=== PATIENT | female | born 1985 | race Hispanic/Latino ===

== ENCOUNTER 2018-03-21 01:38 | Emergency (ER) | payer OTHER, SELFPAY ==
[2018-03-21] MEDS ORDERED: ACETAMINOPHEN 500 MG TAB ONE (02:06)
[2018-03-21] MEDS ORDERED: ONDANSETRON 4 MG (ODT) TAB ONE (02:06)
--- NOTE | 2018-03-21 02:31 | EDPHYS ---
Physician Documentation [facility] Name: Saima Rodriguez Age: 32 yrs Sex: Female : 1985 Arrival Date: 03/21/2018 Time: 01:42 Bed 14 Private MD: ED Physician Neftali Crocker HPI: 03/21 01:50 This 32 yrs old Female presents to ER via Ambulatory with complaints of Sore cp Throat, Fever. 01:50 The patient presents with sore throat, dysphagia, of both solids and liquids. cp 01:50 The patient describes throat pain as constant. cp 01:50 Severity of symptoms: in the emergency department the symptoms are unchanged, despite cp home interventions. Associated signs and symptoms: Pertinent negatives fever, flu-like symptoms. 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 - Social history:: Smoking status: Patient/guardian denies using tobacco, Patient uses alcohol, occasionally. Patient/guardian denies using street drugs, IV drugs. - Ebola Screening: : Patient negative for fever greater than or equal to 101.5 degrees Fahrenheit, and additional compatible Ebola Virus Disease symptoms Patient denies exposure to infectious person Patient denies travel to an Ebola-affected area in the 21 days before illness onset. ROS: 01:55 Constitutional: Positive for chills, Negative for body aches, fever, poor PO intake. cp 01:55 Eyes: Negative for injury, pain, redness, and discharge. cp 01:55 ENT: Positive for difficulty swallowing, ear pain, hoarseness, sore throat, Negative for drainage from ear(s), difficulty handling secretions. 01:55 Respiratory: Negative for cough, shortness of breath, wheezing. 01:55 Abdomen/GI: Positive for nausea, Negative for diarrhea, constipation. 01:55 Skin: Negative for cellulitis, rash. 01:55 Neuro: Negative for altered mental status, headache, weakness. 01:55 All other systems are negative. Exam: 02:00 Constitutional: The patient appears in no acute distress, alert, awake, non-toxic, well cp developed, well nourished. 02:00 Head/Face: Normocephalic, atraumatic. cp 02:00 Eyes: Periorbital structures: appear normal, Conjunctiva: normal, no exudate, no injection, Lids and lashes: appear normal, bilaterally. 02:00 ENT: External ear(s): are unremarkable, Ear canal(s): are normal, clear, TM's: bulging, is not appreciated, bilaterally, dullness, bilaterally, erythema, is not appreciated, bilaterally, Nose: is normal, Mouth: Lips: moist, Oral mucosa: moist, Posterior pharynx: Airway: no evidence of obstruction, patent, Tonsils: bilaterally enlarged, with erythema, no exudate, Uvula: midline, swelling, is not appreciated, erythema, that is moderate, exudate, is not appreciated, Voice: is hoarse. 02:00 Neck: ROM/movement: is normal, is supple, no range of motions limitations, no meningismus, no nuchal rigidity. 02:00 Chest/axilla: Inspection: normal, Palpation: is normal, no crepitus, no tenderness. 02:00 Cardiovascular: Rate: normal, Rhythm: regular. 02:00 Respiratory: the patient does not display signs of respiratory distress, Respirations: normal, no use of accessory muscles, no retractions, no splinting, no tachypnea, labored breathing, is not present, Breath sounds: are clear throughout, no decreased breath sounds, no stridor, no wheezing. 02:00 Abdomen/GI: Exam negative for discomfort, distension, guarding, Inspection: abdomen appears normal. 02:00 Skin: cellulitis, is not appreciated, no rash present. Vital Signs: 01:52 BP 132 / 93; Pulse 90; Resp 16; Temp 98.6(O); Pulse Ox 100% on R/A; Weight 62.6 kg; ao Height 4 ft. 1 in. (124.46 cm); Pain 4/10; 02:43 BP 120 / 80; Pulse 88; Resp 18; Pulse Ox 99% on R/A; jb4 01:52 Body Mass Index 40.41 (62.60 kg, 124.46 cm) ao MDM: 01:44 Patient medically screened. cp 02:30 Data reviewed: vital signs, nurses notes, lab test result(s), and as a result, I will cp discharge patient. 02:30 Counseling: I had a detailed discussion with the patient and/or guardian regarding: the cp historical points, exam findings, and any diagnostic results supporting the discharge/admit diagnosis, lab results, to return to the emergency department if symptoms worsen or persist or if there are any questions or concerns that arise at home. Response to treatment: the patient's symptoms have mildly improved after treatment, and as a result, I will discharge patient. 03/21 01:44 Order name: Flu; Complete Time: 02:30 ak1 03/21 01:44 Order name: Strep; Complete Time: 02:30 ak1 03/21 02:47 Order name: Throat Culture EDME Administered Medications: 02:03 Drug: Zofran 4 mg Route: PO; jb4 02:39 Follow up: Response: No adverse reaction; Nausea is decreased jb4 02:03 Drug: Tylenol 1000 mg Route: PO; jb4 02:39 Follow up: Response: No adverse reaction; Pain is decreased jb4 02:38 Drug: Augmentin Chewable Tablet 800 mg Route: PO; jb4 02:39 Follow up: Response: No adverse reaction jb4 Disposition: 03/21/18 02:31 Discharged to Home. Impression: Acute tonsillitis. - Condition is Stable. - Discharge Instructions: Tonsillitis. - Prescriptions for Ibuprofen 800 mg Oral Tablet - take 1 tablet by ORAL route every 8 hours As needed take with food; 30 tablet. Zofran 4 mg Oral Tablet - take 1 tablet by ORAL route every 12 hours As needed; 20 tablet. Augmentin 875- 125 mg Oral Tablet - take 1 tablet by ORAL route every 12 hours for 10 days; 20 tablet. - Medication Reconciliation Form, Thank You Letter, Antibiotic Education, Prescription Opioid Use form. - Follow up: Private Physician; When: 2 - 3 days; Reason: if symptoms continue. - Problem is new. - Symptoms have improved. Addendum: 03/23/2018 06:59 Co-signature as Attending Physician, Neftali Crocker MD I agree with the assessment and c tristan plan of care. Signatures: Dispatcher [employer] EDME Neftali Crocker MD MD cha Page, Corey, PA PA cp Ortiz, Alex, RN RN ao Bryson, James, RN RN jb4 Corrections: (The following items were deleted from the chart) 03/21 02:50 02:31 03/21/2018 02:31 Discharged to Home. Impression: Acute tonsillitis. Condition is jb4 Stable. Forms are Medication Reconciliation Form, Thank You Letter, Antibiotic Education, Prescription Opioid Use. Follow up: Private Physician; When: 2 - 3 days; Reason: if symptoms continue. Problem is new. Symptoms have improved. cp
--- NOTE | 2018-03-21 02:31 | ER ---
Nurse's Notes [facility] Name: Saima Rodriguez Age: 32 yrs Sex: Female : 1985 Arrival Date: 03/21/2018 Time: 01:42 Bed 14 Private MD: Diagnosis: Acute tonsillitis Presentation: 03/21 01:48 Presenting complaint: Patient states: Sore throat for the past few days. Patient is ao taking medicine over the counter and is not helping. Patient report symptoms are getting worst and now having ear pain and unable to swallow due to throat irritation. Transition of care: patient was not received from another setting of care. Onset of symptoms is unknown. Risk Assessment: Do you want to hurt yourself or someone else? Patient reports no desire to harm self or others. Initial Sepsis Screen: Does the patient meet any 2 criteria? No. Patient's initial sepsis screen is negative. Does the patient have a suspected source of infection? No. Patient's initial sepsis screen is negative. Care prior to arrival: None. 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 - Social history:: Smoking status: Patient/guardian denies using tobacco, Patient uses alcohol, occasionally. Patient/guardian denies using street drugs, IV drugs. - Ebola Screening: : Patient negative for fever greater than or equal to 101.5 degrees Fahrenheit, and additional compatible Ebola Virus Disease symptoms Patient denies exposure to infectious person Patient denies travel to an Ebola-affected area in the 21 days before illness onset. Screenin:54 Abuse screen: Denies threats or abuse. Denies injuries from another. Nutritional ao screening: No deficits noted. Tuberculosis screening: No symptoms or risk factors identified. Fall Risk None identified. Assessment: 01:53 General: Appears in no apparent distress. uncomfortable, Behavior is calm, cooperative, jb4 appropriate for age. Pain: Complains of pain in soar throat Pain does not radiate. Pain currently is 4 out of 10 on a pain scale. at worst was 6 out of 10 on a pain scale. Quality of pain is described as Scratchy. Neuro: Level of Consciousness is awake, alert, obeys commands, Oriented to person, place, time, situation. Cardiovascular: Patient's skin is warm and dry. Respiratory: Airway is patent Respiratory effort is even, unlabored, Respiratory pattern is regular, symmetrical. GI: No signs and/or symptoms were reported involving the gastrointestinal system. : No signs and/or symptoms were reported regarding the genitourinary system. EENT: Throat is reddened has enlarged tonsils. Derm: Skin is intact, Skin is pink, warm \T\ dry. Musculoskeletal: Circulation, motion, and sensation intact. 01:54 Respiratory: Airway is patent Respiratory effort is even, unlabored. ao 02:43 Reassessment: Patient appears in no apparent distress at this time. Patient and/or jb4 family updated on plan of care and expected duration. Pain level reassessed. Patient is alert, oriented x 3, equal unlabored respirations, skin warm/dry/pink. Discussed D/c, F/u with pt, denies questions or concerns. Vital Signs: 01:52 BP 132 / 93; Pulse 90; Resp 16; Temp 98.6(O); Pulse Ox 100% on R/A; Weight 62.6 kg; ao Height 4 ft. 1 in. (124.46 cm); Pain 4/10; 02:43 BP 120 / 80; Pulse 88; Resp 18; Pulse Ox 99% on R/A; jb4 01:52 Body Mass Index 40.41 (62.60 kg, 124.46 cm) ao ED Course: 01:42 Patient arrived in ED. es 01:44 Neftali Garcia PA is PHCP. cp 01:44 Neftali Crocker MD is Attending Physician. cp 01:50 Triage completed. ao 01:53 Yimi Be, SARAH is Primary Nurse. jb4 01:53 Arm band placed on right wrist. Patient placed in an exam room, on a stretcher, on ao pulse oximetry, Patient notified of wait time. 01:53 Flu and/or RSV swab sent to lab. Strep swab sent to lab. jb4 01:54 Patient has correct armband on for positive identification. Pulse ox on. NIBP on. ao 02:43 No provider procedures requiring assistance completed. Patient did not have IV access jb4 during this emergency room visit. Administered Medications: 02:03 Drug: Zofran 4 mg Route: PO; jb4 02:39 Follow up: Response: No adverse reaction; Nausea is decreased jb4 02:03 Drug: Tylenol 1000 mg Route: PO; jb4 02:39 Follow up: Response: No adverse reaction; Pain is decreased jb4 02:38 Drug: Augmentin Chewable Tablet 800 mg Route: PO; jb4 02:39 Follow up: Response: No adverse reaction jb4 Outcome: 02:31 Discharge ordered by . moe 02:43 Discharged to home ambulatory. jb4 02:43 Condition: stable 02:43 Discharge instructions given to patient, Instructed on discharge instructions, follow up and referral plans. medication usage, Demonstrated understanding of instructions, follow-up care, medications, Prescriptions given X 3. 02:50 Patient left the ED. jb4 Signatures: Nimco Payton Corey, PA PA cp Ortiz, Alex, RN RN ao Bryson, James, RN RN jb4
[2018-03-21] MEDS ORDERED: AMOX TR/K CLAV 400MG CHEW TAB PO ONE (02:45)
[2018-03-21 02:59] VITALS: TEMP 98.6
[2018-03-21 03:00] VITALS: BP 120/80; O2SAT 99
== END 2018-03-21 02:50 | disposition home or self-care (01) ==
LOC: ER 01:38
DX: J03.90 Acute tonsillitis, unspecified (principal); R11.0 Nausea
CPT/HCPCS: 87070; 87081; 87804; 99284

== ENCOUNTER 2019-10-06 09:58 | Observation (INO) | payer SELFPAY ==
--- OUTSIDE RECORDS SUMMARY | 2019-10-06 10:46 | XMS REPORT | Continuity of Care Document ---
:1985 Author Organization [facility] t Address [address] [place] [address] Dr. Espinosa [address] [place] [id number] Care Team Providers Name Role Phone Unavailable Unavailable Unavailable Problems This patient has no known problems. Allergies, Adverse Reactions, Alerts This patient has no known allergies or adverse reactions. Medications This patient has no known medications. Procedures This patient has no known procedures. Results This patient has no known results.
[2019-10-06 11:45] LABS: Absolute Lymphocytes (CBC) 1.9 K/uL (0.7-4.9); Basophils % 0.8 % (0-1.3); Lymphocytes % 18.4 % (15.3-44.8); MPV 8.1 fL (7.6-11.3); RBC Red Blood Cell Count 4.94 M/uL (3.86-4.86)
[2019-10-06 12:01] LABS: ALT/SGPT 20 U/L (12-78); AST/SGOT 14 U/L (15-37); Albumin 3.8 g/dL (3.4-5.0); Alkaline Phosphatase 93 U/L (45-117); BUN Blood Urea Nitrogen 8 mg/dL (7-18); Bicarbonate 26 mmol/L (21-32); Bilirubin Direct < 0.1 mg/dL (0-0.2); Bilirubin Total 0.2 mg/dL (0.2-1.0); Glucose Level 99 mg/dL (74-106); Lipase 76 U/L (73-393); Potassium 3.8 mmol/L (3.5-5.1); Protein, Total 7.9 g/dL (6.4-8.2); Sodium Level 141 mmol/L (136-145)
[2019-10-06] MEDS ORDERED: ONDANSETRON 4 MG/2 ML VIAL ONE (12:03)
[2019-10-06] MEDS ORDERED: HYDROMORPHONE HCL 0.5 MG/0.5 ML INJ ONE (12:03)
--- NOTE | 2019-10-06 12:08 | RAD REPORT ---
EXAM DESCRIPTION: US - Abdomen Exam Limited - 10/06/2019 11:55 am CLINICAL HISTORY: Abdominal pain. COMPARISON: None. FINDINGS: Two stones within the gallbladder neck. Largest measures 9 millimeters. Gallbladder wall i s not thickened The biliary tree is normal caliber. IMPRESSION: Cholelithiasis
[2019-10-06 12:18] LABS: Urine Blood TRACE (NEG); Urine Glucose NEGATIVE (NEG); Urine Protein NEGATIVE (NEG); Urine Specific Gravity 1.025 (1.005-1.030)
--- NOTE | 2019-10-06 14:47 | EDPHYS ---
Physician Documentation [facility] Name: Saima Rodriguez Age: 34 yrs Sex: Female : 1985 Arrival Date: 10/06/2019 Time: 10:00 Bed 13 Private MD: ED Physician Silverio Buchanan HPI: 10/05 11:22 This 34 yrs old Female presents to ER via Ambulatory with complaints of Back jmm Pain, Side Pain. 11:22 The patient presents with abdominal pain in the epigastric area. Onset: The jmm symptoms/episode began/occurred gradually, last night. The symptoms radiate to right back. Associated signs and symptoms: Pertinent negatives: nausea and vomiting, diarrhea. The symptoms are described as achy, sharp. Modifying factors: The symptoms are alleviated by nothing, the symptoms are aggravated by nothing. This is a 34 year old female with no chronic medical conditions that presents to the ED with complaints of epigastric abdominal pain which radiates to the back. patient was seen at [facility] earlier this morning and discharged. Patient states home pain medication were not helpful. . Historical: - Allergies: 10:39 No Known Allergies; sv - PMHx: 10:39 None; sv - PSHx: 10:39 Appendectomy; sv - Immunization history:: Adult Immunizations unknown. - Social history:: Smoking status: Patient denies any tobacco usage or history of. ROS: 11:22 Constitutional: Negative for fever, chills, and weight loss, Cardiovascular: Negative jmm for chest pain, palpitations, and edema, Respiratory: Negative for shortness of breath, cough, wheezing, and pleuritic chest pain. 11:22 Back: Negative for injury and pain. 11:22 Abdomen/GI: Positive for abdominal pain. 11:22 All other systems are negative. Exam: 11:22 Constitutional: This is a well developed, well nourished patient who is awake, alert, jmm and in no acute distress. Head/Face: atraumatic. Eyes: EOMI, no conjunctival erythema appreciated ENT: Moist Mucus Membranes Neck: Trachea midline, Supple Chest/axilla: Normal chest wall appearance and motion. Cardiovascular: Regular rate and rhythm. No edema appreciated Respiratory: Normal respirations, no respiratory distress appreciated 11:22 Back: Normal ROM Skin: General appearance color normal MS/ Extremity: Moves all extremities, no obvious deformities appreciated, no edema noted to the lower extremities Neuro: Awake and alert, normal gait Psych: Behavior is normal, Mood is normal, Patient is cooperative and pleasant 11:22 Abdomen/GI: Inspection: abdomen appears normal, Bowel sounds: normal, Palpation: soft, moderate abdominal tenderness, in the right upper quadrant. Vital Signs: 10:38 BP 125 / 81; Pulse 77; Resp 16; Temp 99.6; Pulse Ox 99% ; Weight 63.05 kg; Height 5 ft. sv 10 in. (177.80 cm); Pain 6/10; 12:08 BP 122 / 78; Pulse 84; Resp 16; Pulse Ox 97% ; bp 13:00 BP 136 / 89; Pulse 66; Resp 17; Pulse Ox 98% ; bp 14:00 BP 121 / 84; Pulse 63; Resp 17; Pulse Ox 98% ; bp 15:30 BP 118 / 62; Pulse 63; Resp 17; Temp 99; Pulse Ox 99% ; bp 10:38 Body Mass Index 19.94 (63.05 kg, 177.80 cm) sv MDM: 11:22 Patient medically screened. [facility] 14:45 Data reviewed: vital signs, nurses notes. Counseling: I had a detailed discussion with [facility] the patient and/or guardian regarding: the historical points, exam findings, and any diagnostic results supporting the discharge/admit diagnosis, lab results, radiology results, the need for further work-up and treatment in the hospital. ED course: I discussed the patient with Dr. Mejia. Patient given option of follow up on Friday vs observation/surgery. Patient elects observation. 10/05 11:25 Order name: Basic Metabolic Panel; Complete Time: 12:13 [facility] 10/05 11:25 Order name: CBC with Diff; Complete Time: 11:55 [facility] 10/05 11:25 Order name: Hepatic Function; Complete Time: 12:13 [facility] 10/05 11:25 Order name: Lipase; Complete Time: 12:13 [facility] 10/05 12:08 Order name: Urine Dipstick--Ancillary (enter results); Complete Time: 12:24 [facility] 10/05 12:08 Order name: Urine --Ancillary (enter results); Complete Time: 12:24 [facility] 10/05 14:52 Order name: Basic Metabolic Panel EDMS 10/05 14:52 Order name: Basic Metabolic Panel EDMS 10/05 14:52 Order name: CBC with Automated Diff EDOR 10/05 14:52 Order name: CBC with Automated Diff [facility] 10/05 14:52 Order name: Lipase [facility] 10/05 14:52 Order name: Lipase [facility] 10/05 14:53 Order name: Liver (Hepatic) Function EDOR 10/05 14:53 Order name: Liver (Hepatic) Function [facility] 10/05 11:25 Order name: IV Saline Lock; Complete Time: 11:40 [facility] 10/05 11:25 Order name: Labs collected and sent; Complete Time: 11:40 [facility] 10/05 11:25 Order name: Urine Dipstick-Ancillary (obtain specimen); Complete Time: 12:05 [facility] 10/05 11:25 Order name: Urine Test (obtain specimen); Complete Time: 12:05 [facility] 10/05 11:25 Order name: US Abdomen Limited; Complete Time: 12:13 [facility] 10/05 14:52 Order name: NPO EDOR Administered Medications: 11:50 Drug: Dilaudid 0.5 mg Route: IVP; Site: right antecubital; bp 15:50 Follow up: Response: Pain is decreased bp 11:50 Drug: Zofran (Ondansetron) 4 mg Route: IVP; Site: right antecubital; bp 15:50 Follow up: Response: No adverse reaction bp Disposition: 10/06 09:06 Co-signature as Attending Physician, Silverio Buchanan MD I agree with the assessment and kdr plan of care. Disposition: 10/06/19 14:46 Hospitalization ordered by Jitenrda Mejia for Observation. Preliminary diagnosis are Cholelithiasis, Intractable Abdominal Pain. - Bed requested for Telemetry/MedSurg (observation). - Status is Observation. bp - Condition is Stable. - Problem is new. - Symptoms have improved. Signatures: Dispatcher [employer] EDMS Suzan Catherine RN RN kl Verde, Stephanie, RN RN sv Rittger, Kevin, MD MD kdr Mickail, Joel, PA PA jmm Peltier, Brian, RN RN bp Corrections: (The following items were deleted from the chart) 10/05 15:15 14:46 Hospitalization Ordered by Jitendra Mejia MD for Observation. Preliminary kl diagnosis is Cholelithiasis; Intractable Abdominal Pain. Bed requested for Telemetry/MedSurg (observation). Status is Observation. Condition is Stable. Problem is new. Symptoms have improved. tip 15:55 15:15 10/06/2019 14:46 Hospitalization Ordered by Jitendra Mejia MD for Observation. bp Preliminary diagnosis is Cholelithiasis; Intractable Abdominal Pain. Bed requested for Telemetry/MedSurg (observation). Status is Observation. Condition is Stable. Problem is new. Symptoms have improved. kl
--- NOTE | 2019-10-06 14:47 | ER ---
Nurse's Notes [facility] Name: Saima Rodriguez Age: 34 yrs Sex: Female : 1985 Arrival Date: 10/06/2019 Time: 10:00 Bed 13 Private MD: Diagnosis: Cholelithiasis;Intractable Abdominal Pain Presentation: 10/05 10:38 Chief complaint: Patient states: right side abd pain that radiates to the right flank sv since 0100 today. Went to [facility] but they were unable to do an US for her gallbladder. Reports unable to eat. Coronavirus screen: Proceed with normal triage. Patient denies a cough. Patient denies shortness of breath or difficulty breathing. Patient denies measured and/or subjective temperature greater than 100.4F prior to today's visit. Patient denies travel on a cruise ship or to a country the [facility] currently lists as an affected area. Patient denies contact with known and/or suspected case of COVID-19. Ebola Screen: No symptoms or risks identified at this time. Initial Sepsis Screen: Does the patient meet any 2 criteria? No. Patient's initial sepsis screen is negative. Does the patient have a suspected source of infection? No. Patient's initial sepsis screen is negative. Risk Assessment: Do you want to hurt yourself or someone else? Patient reports no desire to harm self or others. Onset of symptoms was October 06, 2019. 10:38 Method Of Arrival: Ambulatory sv 10:38 Acuity: SHARON 3 sv Triage Assessment: 10:40 General: Appears in no apparent distress. uncomfortable, Behavior is calm, cooperative, sv appropriate for age. Pain: Complains of pain in right upper quadrant and right lower quadrant Pain radiates to posterior aspect of right lateral abdomen. Neuro: Level of Consciousness is awake, alert, obeys commands, Oriented to person, place, time, situation, Gait is steady. Respiratory: Respiratory effort is even, unlabored. Historical: - Allergies: 10:39 No Known Allergies; sv - PMHx: 10:39 None; sv - PSHx: 10:39 Appendectomy; sv - Immunization history:: Adult Immunizations unknown. - Social history:: Smoking status: Patient denies any tobacco usage or history of. Screenin:41 Abuse screen: Denies threats or abuse. Denies injuries from another. Nutritional ca1 screening: No deficits noted. Tuberculosis screening: No symptoms or risk factors identified. Fall Risk IV access (20 points). Assessment: 11:10 General: Appears in no apparent distress. uncomfortable, Behavior is cooperative, bp appropriate for age, anxious. Pain: Complains of pain in posterior aspect of right lateral abdomen and right lower quadrant and right upper quadrant. Neuro: No deficits noted. Neuro: Level of Consciousness is awake, alert, obeys commands, Oriented to person, place, time, situation, Appropriate for age. Cardiovascular: No deficits noted. Respiratory: No deficits noted. GI: No signs and/or symptoms were reported involving the gastrointestinal system. : No signs and/or symptoms were reported regarding the genitourinary system. EENT: No deficits noted. Derm: No deficits noted. Musculoskeletal: No deficits noted. 11:50 Reassessment: PT RETURNED FROM U/S. bp 13:00 Reassessment: PT SLEEPING, NO ACUTE S/S AT THIS TIME. bp 14:30 Reassessment: ADMIT PENDING. bp Vital Signs: 10:38 BP 125 / 81; Pulse 77; Resp 16; Temp 99.6; Pulse Ox 99% ; Weight 63.05 kg; Height 5 ft. sv 10 in. (177.80 cm); Pain 6/10; 12:08 BP 122 / 78; Pulse 84; Resp 16; Pulse Ox 97% ; bp 13:00 BP 136 / 89; Pulse 66; Resp 17; Pulse Ox 98% ; bp 14:00 BP 121 / 84; Pulse 63; Resp 17; Pulse Ox 98% ; bp 15:30 BP 118 / 62; Pulse 63; Resp 17; Temp 99; Pulse Ox 99% ; bp 10:38 Body Mass Index 19.94 (63.05 kg, 177.80 cm) sv ED Course: 10:00 Patient arrived in ED. ag5 10:39 Triage completed. sv 10:40 Arm band placed on. sv 11:09 Bradly Singh PA is PHCP. jm 11:09 Silverio Buchanan MD is Attending Physician. jm 11:11 Andre Hightower, SARAH is Primary Nurse. bp 11:40 Initial lab(s) drawn, by pr, sent to lab. Inserted saline lock: 22 gauge in right ca1 antecubital area, using aseptic technique. Blood collected. 11:41 Patient has correct armband on for positive identification. Bed in low position. Call ca1 light in reach. Side rails up X 1. Pulse ox on. NIBP on. Warm blanket given. 11:55 US Abdomen Limited In Process Unspecified. EDMS 14:46 Jitendra Mejia MD is Hospitalizing Provider. jm 15:44 No provider procedures requiring assistance completed. Patient admitted, IV remains in bp place. Administered Medications: 11:50 Drug: Dilaudid 0.5 mg Route: IVP; Site: right antecubital; bp 15:50 Follow up: Response: Pain is decreased bp 11:50 Drug: Zofran (Ondansetron) 4 mg Route: IVP; Site: right antecubital; bp 15:50 Follow up: Response: No adverse reaction bp Outcome: 14:46 Decision to Hospitalize by Provider. jmm 15:44 Admitted to Med/surg accompanied by tech, via wheelchair, room 216, with chart. bp 15:44 Condition: stable 15:44 Instructed on the need for admit. 15:54 Admitted to Med/surg Report called to SONALI SMITH bp 15:55 Patient left the ED. bp Signatures: Dispatcher [employer] EDMS Dariana Terrell, RN RN Bradly Collado PA PA jmm Peltier, Brian, Alicia Hughes RN, RN RN ca1 Alejandro Oviedo ag5
[2019-10-06] MEDS ORDERED: MORPHINE 4 MG/ML SYR IV PRN (14:50)
[2019-10-06] MEDS ORDERED: ONDANSETRON 4 MG/2 ML VIAL IV PRN (14:50)
[2019-10-06] MEDS: D5 0.45 NS 1,000 ML IV SCH ×2 (15:00→22:21)
[2019-10-06 17:14] VITALS: BMI 29.0
[2019-10-06 17:24] VITALS: O2SAT 100
[2019-10-06] MEDS ORDERED: CEFOXITIN SODIUM 1 GM/VIAL IVPB SCH (18:00)
[2019-10-06] MEDS: CEFOXITIN/SWI 1gm 1 GM/10 ML SYR IV SCH (18:01)
--- NOTE | 2019-10-06 23:52 | HP ---
Date of Admission: 10/06/2019 Reason For Service: Intractable right upper quadrant abdominal pain. History Of Present Illness: This is the case of a 34-year-old patient, female who comes to us compla ining epigastric right upper quadrant pain associated with nausea, vomiting, since that 1 o'clock thi s morning. Before that, she ate some food at [employer]. She went to the ER at [facility], but she was sen t home and then she came to our institution 3 hours later. Patient was found to have symptomatic cho lelithiasis with gallstones in the neck of the gallbladder, and intractable abdominal pain. So, I wa s called for an evaluation and admission. Allergies: NONE. Past Medical History: None. Past Surgical History: Appendectomy. Social History: She does smoke, she does not drink alcohol. Family History: Noncontributory. Review of Systems: Ten points otherwise unremarkable. Physical Examination: General: Patient is awake and alert. HEENT: Pupils are equal and reactive, anicteric. Neck: Supple. Chest: Clear. Abdomen: Epigastric right upper quadrant pain with Smith sign positive. BREASTS: Deferred. PELVIC: Deferred. RECTAL: Deferred. EXTREMITIES: Good capillary refill. NEUROLOGIC: Cranial nerves 2 through 12 grossly within normal limits. Laboratory Data: WBC count 10.3, hemoglobin of 13.7. Total bilirubin of 0.2, alkaline phos of 93. Abdomen ultrasound interpreted by Dr. Prado, has a multiple stone in the gallbladder neck. Assessment: 34-year-old patient with intractable abdominal pain, Smith sign positive. Unable to to lerate diet. She went this morning to another ER, discharged but then she has to go to the second ER since the patient was not getting better. We admitted her for symptomatic cholelithiasis, acute cho lecystitis. She understands the options of laparoscopic, possible open cholecystectomy. Benefits, a lternatives, and risks including, but not limited to infection, bleeding, damage to adjacent structur es, anesthesia complication, choledocholithiasis, bile leak, pancreatitis, myocardial infarction, jono n . She also understands this may not relieve the symptoms. She might need more than one surgi rafael eventually. She does not want to go home. She wants to have the surgery during this admission. So, we booked the person emergently in the OR. HM/MODL Voice ID: [id number]
[2019-10-07] MEDS: CEFOXITIN/SWI 1gm 1 GM/10 ML SYR IV SCH ×2 (00:16→06:55)
[2019-10-07 05:32] LABS: Absolute Lymphocytes (CBC) 2.2 K/uL (0.7-4.9); Basophils % 1.3 % (0-1.3); Hematocrit 37.8 % (36.0-45.0); Lymphocytes % 24.2 % (15.3-44.8); MPV 8.5 fL (7.6-11.3); RBC Red Blood Cell Count 4.66 M/uL (3.86-4.86)
[2019-10-07 05:52] LABS: BUN Blood Urea Nitrogen 5 mg/dL (7-18); Bicarbonate 27 mmol/L (21-32); Glucose Level 112 mg/dL (74-106); Lipase 69 U/L (73-393); Potassium 3.5 mmol/L (3.5-5.1); Sodium Level 142 mmol/L (136-145)
[2019-10-07] MEDS ORDERED: Ringers Lactate 1,000 ML IV ONE (06:30)
[2019-10-07] MEDS ORDERED: GLYCOPYRROLATE 0.2 MG/ML SYR ONE ×2 (06:38→06:39)
[2019-10-07] MEDS ORDERED: propofoL 200 MG/20 ML VIAL IV ONE (06:38)
[2019-10-07] MEDS ORDERED: MIDAZOLAM HCL 2 MG/2 ML INJ ONE (06:38)
[2019-10-07] MEDS ORDERED: FENTANYL CITR 100 MCG/2 ML ONE (06:38)
[2019-10-07] MEDS ORDERED: ONDANSETRON 4 MG/2 ML VIAL ONE (06:39)
[2019-10-07] MEDS ORDERED: LIDOCAINE 1% MPF 5 ML VIAL ONE (06:39)
[2019-10-07] MEDS ORDERED: ROCURONIUM 50 MG/5 ML VIAL IV ONE (06:39)
[2019-10-07] MEDS ORDERED: NEOSTIGMINE 1 MG/ML -5 ML ONE (06:40)
[2019-10-07] MEDS: D5 0.45 NS 1,000 ML IV SCH (06:42)
[2019-10-07] MEDS ORDERED: dexAMETHasone 10 MG/ML VIAL ONE (06:45)
--- NOTE | 2019-10-07 06:59 | P.BOP ---
Transferred to: Recovery Room
--- NOTE | 2019-10-07 07:19 | P.BOP ---
Preoperative diagnosis: acute cholecystitis, symptomatic cholelithiasis, intractable RUQ pain Postoperative diagnosis: same Primary procedure: Laparoscopic cholecystectomy Kitchen Chef: Ngozi Dhaliwal (John) Estimated blood loss: <10cc Specimen: gb Findings: as above Anesthesia: General Complications: None Transferred to: Recovery Room
[2019-10-07] MEDS ORDERED: KETOROLAC 30 MG/ML INJ ONE (07:25)
[2019-10-07] MEDS ORDERED: HYDROCODONE/APAP 5/325 MG TAB PO PRN (07:37)
[2019-10-07 10:04] VITALS: TEMP 97
--- NOTE | 2019-10-07 10:07 | OP ---
Date of Procedure: 10/07/2019 Surgeon: Jitendra Mejia MD Color Coater: KARLIE Lopez. Preoperative Diagnoses: Acute cholecystitis, symptomatic cholelithiasis, intractable right upper javon drant abdominal pain. Postoperative Diagnoses: Acute cholecystitis, symptomatic cholelithiasis, intractable right upper qu adrant abdominal pain. Procedure: Laparoscopic cholecystectomy. Estimated Blood Loss: Less than 10 mL. Anesthesia: General plus local. Indications: This is a case of a female who comes to us with above diagnosis. Fully explained the b enefits, alternatives, and risks of laparoscopic, possible open cholecystectomy, which include, but a re not limited to infection, bleeding, damage to adjacent structures, anesthesia complication, choled ocholithiasis, bile leak, pancreatitis, VT, and even . She also understands this may not reliev e any symptoms. She might need more than one surgical intervention. She understood, signed a consen t. Description Of Procedure: Patient was brought to the operating room, placed in supine position. Ane sthesia was done without complication. Abdominal area was prepped and draped in a sterile fashion. Marcaine 0.5% was injected for local anesthetic, followed by sharp incision of the skin in the infrau mbilical region. Incision was carried down to fascia, which was opened under direct vision. Periton eum was encountered, opened under direct vision. Vicryl #1 placed inside the fascia. Suni trocar was carefully introduced. No bleeding was obtained. I placed 3 more trocars, 5 mm each one of them, in the right upper quadrant using same technique, which consisted of local anesthetic, sharp incisio n of the skin, and introduction of the trocars under direct vision. This allowed me to put a grasper in the fundus of the gallbladder, another grasper in the infundibulum, retracted the gallbladder in the inferolateral fashion exposing the triangle of Calot. The cystic duct and cystic artery were swapnil kenzie isolated, freed circumferentially, and the connection between those and the gallbladder were swapnil kenzie identified. I proceeded to ligate those by using at least 3 clips proximal, 1 clip distal, liga tion in middle. Same was done with the cystic artery. No bile leak. No bleeding. The gallbladder was removed from the liver using Bovie cauterizer and removed from abdominal cavity using an EndoCatc h through the umbilical incision. After that, we inspected the area once again. No bile leak, no bl eeding. After the gallbladder fossa and the area was irrigated. Once again, area looked intact. At that moment, I proceeded to remove the trocars under direct vision. Deflated the pneumoperitoneum. Closed the fascia with #1 Vicryl, irrigated the subcutaneous incision, closed that with 3-0 chromic, and skin with vera. Sponge count and instrument counts were correct. Patient tolerated the proc edure well. Patient was sent to recovery in stable condition. PRASANNA/BRADEN Voice ID: [id number] Report ID: [id number]
[2019-10-07 14:27] VITALS: BP 97/55
== END 2019-10-07 14:52 | disposition home or self-care (01) ==
LOC: ER 09:58 → ERHOLD 14:49 → 2ND 15:31
PROVIDERS: ADMIT Surgery; ATTEND Surgery
PROC: 0FT44ZZ Resection of Gallbladder, Percutaneous Endoscopic Approach (ICD-10-PCS; principal; 2019-10-07 07:00)
DX: K80.12 Calculus of gallbladder with acute and chronic cholecystitis without obstruction (principal)
CPT/HCPCS: 36415; 76705; 80048; 80076; 81003; 81025; 83690; 85025; 88304; 96374; 96375; 99285; G0378; J1100; J1170; J2250; J2405; J2704; J2710; J3010; J7120; J7799; U0002